=== PATIENT | male | born 1985 | race Caucasian/White ===

== ENCOUNTER 2022-03-14 10:32 | Emergency (ER) | payer OTHER ==
[~2022-03-14] VITALS: Ht 167.6 cm; Wt 97.5 kg
[~2022-03-14 10:32] MED LIST: ACYC800 PO; ASPI325 PO; CYCL10 PO; NAPR550 PO; PRED20 PO
[2022-03-14 13:12] LABS: Albumin, Blood 4.1 g/dL (3.4-5.0); Bilirubin, Total 0.3 mg/dL (0.1-1.0); Bun/Creatinine Ratio 12.7 (12.0-20.0); Calcium, Blood 9.5 mg/dL (8.5-10.1); Creatinine, Blood 0.86 mg/dL (0.60-1.20); Globulin, Blood 4.2 g/dL (2.2-4.0); Potassium, Blood 3.4 mmol/L (3.5-5.5); Total Protein, Blood 8.3 g/dL (6.4-8.2)
== END 2022-03-14 12:18 | disposition home or self-care (01) ==
LOC: ER 10:32
PROVIDERS: Student in an Organized Health Care Education/Training Program
DX: L02.512 Cutaneous abscess of left hand (principal); Z79.82 Long term (current) use of aspirin
CPT/HCPCS: 80053

== ENCOUNTER → 2023-05-07 | Outpatient (CLI) | payer OTHER ==
[2023-05-07 18:49] LABS: Albumin, Blood 4.1 g/dL (3.4-5.0); Bilirubin, Total 0.4 mg/dL (0.1-1.0); Bun/Creatinine Ratio 12.9 (12.0-20.0); Calcium, Blood 9.1 mg/dL (8.5-10.1); Creatinine, Blood 0.85 mg/dL (0.60-1.20); Total Protein, Blood 8.1 g/dL (6.4-8.2)
== END | disposition home or self-care (01) ==
LOC: LAB SHORT 18:19 → LAB 18:19
PROVIDERS: Physician Assistant
DX: R06.00 Dyspnea, unspecified (principal)
CPT/HCPCS: 80053; 83880